=== PATIENT | male | born 1960 | race Caucasian/White ===

== ENCOUNTER 2023-10-01 04:25 | Emergency (ER) | payer OTHER ==
[2023-10-01 04:47] LABS: #Basophils 0.1 thou/uL (0.0-0.2); #Eosinphils 0.3 thou/uL (0.0-0.7); #Lymphocytes 1.1 thou/uL (1.20-3.40); #Monocytes 0.7 thou/uL (0.11-0.59); #Neutrophils 5.7 thou/uL (1.40-6.50); %Basophils 1.1 % (0.0-1.0); %Eosinophils 4.1 % (0.0-10.0); %Lymphocytes 13.9 % (21.0-51.0); %Monocytes 8.2 % (0.0-10.0); %Neutrophils 72.8 % (42.0-75.0); Hematocrit 35.8 % (42.0-52.0); Mean Corpuscular HGB CONC 30.6 g/dL (32.0-36.0); Mean Corpuscular Hemoglobin 26.8 pg (27.0-31.0); Mean Corpuscular Volume 87.5 fl (78.0-98.0); Mean Platelet Volume 7.7 fL (7.4-10.4); Platelet Count 223 10x3/uL (130-400); White Blood Cell (WBC) Count 7.9 10x3/uL (4.8-10.8)
[2023-10-01 05:05] LABS: ALT (SGPT) 17 U/L (8-55); AST (SGOT) 22 U/L (5-34); Albumin 3.5 g/dL (3.4-4.8); Alkaline Phosphatase 130 U/L (40-110); Anion Gap 13 mmol/L (10-20); BUN (Urea Nitrogen) 15 mg/dL (8.4-25.7); Bilirubin, Total 0.7 mg/dL (0.2-1.2); Calc. Creatinine Clearance 0 mL/min (70-130); Calcium 8.9 mg/dL (7.8-10.44); Carbon Dioxide 24 mmol/L (23-31); Chloride 102 mmol/L (98-107); Estimated GFR 75; Globulin 3.5 g/dL (2.4-3.5); Glucose 333 mg/dL (80-115); Potassium 4.4 mmol/L (3.5-5.1); Sodium 135 mmol/L (136-145)
[2023-10-01 05:06] LABS: Troponin I 0.034 ng/mL (< 0.028)
[2023-10-01] MEDS ORDERED: HYDROcodone/Acetaminophen 10/325 mg Tablet ONE (05:06)
[2023-10-01 05:24] LABS: Bilirubin Negative (Negative); Blood, Urine Trace (Negative); Clarity Clear (Clear); Glucose, Urine (Dipstick) 500 mg/dL (Negative); Ketone, Urine Negative (Negative); Leukocyte Negative (Negative); Nitrite Negative (Negative); Protein, Urine (Dipstick) > or equal to 300 mg/dL (Neg-Trace); Specific Gravity, Urine 1.025 (1.005-1.030); Urobilinogen 0.2 mg/dL (Less than 2)
[2023-10-01 05:27] LABS: Urine Culture Reflex No No
[2023-10-01 05:28] LABS: Bacteria/HPF Rare-Few HPF (None Seen); CAUTI Indications for Culture Dysuria,urgency,freq; RBC/HPF 0-3 HPF (0-3); WBC/HPF None Seen HPF (0-3)
[2023-10-01 05:32] LABS: Amphetamine Not Detected (NotDetected); Barbiturates Screen Not Detected (NotDetected); Benzodiazepine Screen Not Detected (NotDetected); Cocaine Metabolite Screen Not Detected (NotDetected); Methadone Not Detected (NotDetected); Methamphetamine Not Detected (NotDetected); Opiate Screen Not Detected (NotDetected); Oxycodone Screen Not Detected (NotDetected); Phencyclidine (PCP) Not Detected (NotDetected); THC/Cannabinoid Screen Not Detected (NotDetected); Tricyclic Screen Not Detected (NotDetected)
[2023-10-01] MEDS ORDERED: Furosemide 40 MG (4 mL) VIAL ONE (05:40)
[2023-10-01] MEDS ORDERED: Metoprolol Tartrate 5 MG (5 mL) VIAL ONE (05:40)
[2023-10-01 08:35] LABS: Troponin I 0.032 ng/mL (< 0.028)
== END 2023-10-01 10:18 | disposition short-term general hospital (02) ==
LOC: NAV ERS 04:25
DX: S09.90XA Unspecified injury of head, initial encounter (principal); I11.0 Hypertensive heart disease with heart failure; I50.9 Heart failure, unspecified; E78.5 Hyperlipidemia, unspecified; E03.9 Hypothyroidism, unspecified; I25.10 Atherosclerotic heart disease of native coronary artery without angina pectoris; Z79.82 Long term (current) use of aspirin; Z79.899 Other long term (current) drug therapy; W19.XXXA Unspecified fall, initial encounter
CPT/HCPCS: 70450; 71045; 80053; 80306; 81001; 83880; 84484; 85025; 93005; 96374; 96375; J1940